=== PATIENT | female | born 2005 | race Caucasian/White ===

== ENCOUNTER → 2025-02-07 | Outpatient (CLI) | payer OTHER ==
--- NOTE | 2025-02-07 16:17 | US ---
EXAMINATION TYPE: US thyroid st tissue head/neck DATE OF EXAM: 02/07/2025 COMPARISON: NONE CLINICAL INDICATION: Female, 19 years old with history of R22.1 LOCALIZED SWELLING, MASS AND LUMP, NE CK; Lump right side of neck TECHNIQUE: FINDINGS: Hypoechoic area seen 1.1 x .4 cm and .7 cm May be a small lymph node IMPRESSION: Small hypoechoic area at the palpable region at the area of concern may be a small lymph node. Clinical management recommended. [facility], , 02/07/2025 4:15 PM
== END | disposition home or self-care (01) ==
LOC: RADUSWWP 15:43
PROVIDERS: ATTEND Nurse Practitioner
DX: R22.1 Localized swelling, mass and lump, neck (principal)
CPT/HCPCS: 76536